=== PATIENT | female | born 1980 | race Caucasian/White ===

== ENCOUNTER 2016-07-17 05:33 | Emergency (ER) | payer OTHER ==
[~2016-07-17] VITALS: Ht 152.4 cm; Wt 59.0 kg
[~2016-07-17 05:33] MED LIST: BENADRYL50 MG PO; FOLIC ACID5 MG PO; HYDROCORTISONE1.5 GM TP; MACROBID100 M1 PO; PRENATAL VITAMI1 T10 PO; ZOFRAN4 M1 PO; ZOFRAN4 M2 PO
[2016-07-17 05:34] VITALS: BP 131/85
--- NOTE | 2016-07-17 05:45 | NUR ---
PT TAKEN TO BED 3
--- NOTE | 2016-07-17 05:48 | NUR ---
Patient being evaluated by DR. PERKINS at bedside.
[2016-07-17] MEDS ORDERED: NACL 0.9% 500 ML IV ONE (05:49)
[2016-07-17] MEDS ORDERED: KETOROLAC 30 MG/ML VIAL IVP ONE (05:50)
[2016-07-17] MEDS ORDERED: ONDANSETRON 4 MG/2 ML VIAL IVP ONE (05:50)
--- NOTE | 2016-07-17 06:00 | NUR ---
36Y/F PATIENT PRESENTS TO ED WITH C/O RT. FLANK PAIN X 1 DAY. PT STATES PAIN STATRTED YESTERDAY WITH NAUSEA, TODAY PAIN WORSEN, DENIES FEVER. DENIES DIARRHEA; SKIN IS PINK/WARM/DRY; AAOX4 WITH EVEN AND STEADY GAIT; LUNGS CLEAR BL; HR EVEN AND REGULAR; PT DENIES ANY FEVER, CP, SOB, OR COUGH AT THIS TIME; PATIENT STATES PAIN OF 10/10 AT THIS TIME; VSS; PATIENT POSITIONED FOR COMFORT; HOB ELEVATED; BEDRAILS UP X2; BED DOWN. ER MD MADE AWARE OF PT STATUS.
--- NOTE | 2016-07-17 06:18 | NUR ---
US AT BEDSIDE
[2016-07-17] MEDS ORDERED: fentaNYL 0.05 MG/ML VIAL IVP ONE (06:55)
--- NOTE | 2016-07-17 07:15 | NUR ---
Patient discharged with v/s stable. Written and verbal after care instructions given and explained. Patient alert, oriented and verbalized understanding of instructions. Ambulatory with steady gait. All questions addressed prior to discharge. ID band removed. Patient advised to follow up with PMD. Rx of TRAMADOL 50 ML, ZOFRAN 4 MG, MOTRIN 800 MG given. Patient educated on indication of medication including possible reaction and side effects. Opportunity to ask questions provided and answered.
[2016-07-17 07:16] VITALS: BP 130/69
== END 2016-07-17 07:15 | disposition home or self-care (01) ==
LOC: MED 05:33
DX: K80.50 Calculus of bile duct without cholangitis or cholecystitis without obstruction (principal); R03.0 Elevated blood-pressure reading, without diagnosis of hypertension
CPT/HCPCS: 36415; 76705; 80053; 81002; 81025; 83690; 85025; 96361; 96374; 96375; 99285; J1885; J2405; J3010; J7030; Q0092

== ENCOUNTER 2017-06-23 06:55 | Emergency (ER) | payer OTHER ==
[~2017-06-23] VITALS: Ht 154.9 cm; Wt 59.1 kg
[~2017-06-23 06:55] MED LIST changes: -BENADRYL50 MG PO; +FOLI5CAP PO; -FOLIC ACID5 MG PO; -HYDROCORTISONE1.5 GM TP; -MACROBID100 M1 PO; +ONDA4TAB PO; +PREN-385 PO; -PRENATAL VITAMI1 T10 PO; -ZOFRAN4 M1 PO; -ZOFRAN4 M2 PO
[2017-06-23 06:58] VITALS: BP 118/75
--- NOTE | 2017-06-23 07:05 | NUR ---
PT TAKEN TO BED 11 Addendum: 06/23/17 at 0711 by ISMA PT TAKEN TO BED 12
[2017-06-23 07:21] LABS: BASOPHILS # (AUTO) 0.2 K/uL (0.00-0.22); BASOPHILS % (AUTO) 4.3 % (0.0-2.0); EOSINOPHILS # (AUTO) 0.2 K/uL (0-0.4); EOSINOPHILS % (AUTO) 3.7 % (0.0-4.0); HEMATOCRIT 33.5 % (36-48); LYMPHOCYTES # (AUTO) 1.2 K/uL (2.5-16.5); LYMPHOCYTES % (AUTO) 25.1 % (20.5-51.1); MEAN CORPUSCULAR HEMOGLOBIN 29 pg (27-31); MEAN CORPUSCULAR HGB CONC 33 g/dL (33-37); MEAN CORPUSCULAR VOLUME 87 fL (80-94); MONOCYTES # (AUTO) 0.4 K/uL (0.8-1.0); MONOCYTES % (AUTO) 8.9 % (1.7-9.3); NEUTROPHILS # (AUTO) 2.8 K/uL (1.8-7.7); PLATELET COUNT (AUTO) 204 K/uL (140-450); RED BLOOD CELL COUNT(AUTO) 3.87 MIL/uL (4.20-5.40); RED CELL DISTRIBUTION WIDTH 14.1 % (11.6-13.7); WHITE BLOOD COUNT (AUTO) 4.8 K/uL (4.8-10.8)
--- NOTE | 2017-06-23 07:26 | NUR ---
PATIENT PRESENTS TO ED WITH a2--recent found out she is vaginal spotting x4 days with intermittent cramping . PT STATES is concerned due to having hx of ectopic] . DENIES N/V/D; SKIN IS PINK/WARM/DRY; AAOX4 WITH EVEN AND STEADY GAIT; LUNGS CLEAR BL; HR EVEN AND REGULAR; PT DENIES ANY FEVER, CP, SOB, OR COUGH AT THIS TIME; PATIENT STATES PAIN OF 7/10 AT THIS TIME; VSS; PATIENT POSITIONED FOR COMFORT; HOB ELEVATED; BEDRAILS UP X2; BED DOWN. ER MD MADE AWARE OF PT STATUS.
[2017-06-23 07:41] LABS: BILIRUBIN,URINE NEGATIVE (NEGATIVE); BLOOD, URINE 1+ (NEGATIVE); COLOR,URINE YELLOW (YELLOW); LEUKOCYTE ESTERASE ,URINE 2+ (NEGATIVE); NITRITE, URINE NEGATIVE (NEGATIVE); PH,URINE 5.5 (5.0-9.0); UGLUCOSE NEGATIVE (NEGATIVE)
[2017-06-23] MEDS ORDERED: ACETAMINOPHEN EXTRA STRENGTH 500 MG TAB PO ONE (08:00)
--- NOTE | 2017-06-23 08:08 | NUR ---
bedside ultrasound at bedside
[2017-06-23 08:25] LABS: APPEARANCE,URINE HAZY (CLEAR)
[2017-06-23 08:26] LABS: WBC,URINE 6-15 (FEW) /HPF (0-5)
[2017-06-23 08:27] LABS: RBC,URINE 0-5 (RARE) /HPF (0-5)
[2017-06-23 09:20] VITALS: BP 108/70
--- NOTE | 2017-06-23 09:20 | NUR ---
Patient discharged with v/s stable. Written and verbal after care instructions given and explained. Patient alert, oriented and verbalized understanding of instructions. Ambulatory with steady gait. All questions addressed prior to discharge. ID band removed. Patient advised to follow up with PMD. Rx of MACROBID/ VIT/TYLENOL given. Patient educated on indication of medication including possible reaction and side effects. Opportunity to ask questions provided and answered. REPEAT ULTRASOUND 2 WKS
== END 2017-06-23 09:20 | disposition home or self-care (01) ==
LOC: MED 06:55
DX: O20.0 Threatened abortion (principal); O23.41 Unspecified infection of urinary tract in pregnancy, first trimester; Z3A.01 Less than 8 weeks gestation of pregnancy; Z90.721 Acquired absence of ovaries, unilateral
CPT/HCPCS: 36415; 76817; 81001; 81025; 84702; 85025; 86900; 86901; 87086; 99285; Q0092

== ENCOUNTER 2017-06-27 09:13 | Emergency (ER) | payer OTHER ==
[~2017-06-27] VITALS: Ht 154.9 cm; Wt 62.6 kg
[2017-06-27 09:24] VITALS: BP 111/66
[2017-06-27] MEDS: ACETAMINOPHEN EXTRA STRENGTH 500 MG TAB PO ONE (09:45)
--- NOTE | 2017-06-27 09:48 | NUR ---
PATIENT PRESENTS TO ED WITH C/O OF PAIN ON LOWER ABD AND VAGINAL BLEEDING . PT STATES LOWER ABD CRAMPING SINCE YESTERDAY AND VAGINAL BLEEDING THIS MORNING. DENIES N/V/D; SKIN IS PINK/WARM/DRY; AAOX4 WITH EVEN AND STEADY GAIT; HR EVEN AND REGULAR; PT DENIES ANY FEVER, CP, SOB, OR COUGH AT THIS TIME; PATIENT STATES PAIN OF 7/10 AT THIS TIME; VSS; PATIENT POSITIONED FOR COMFORT; HOB ELEVATED; BEDRAILS UP X2; BED DOWN. ER MD MADE AWARE OF PT STATUS.
[2017-06-27 09:59] LABS: APPEARANCE,URINE HAZY (CLEAR); BILIRUBIN,URINE 1+ (NEGATIVE); BLOOD, URINE 3+ (NEGATIVE); COLOR,URINE YELLOW (YELLOW); LEUKOCYTE ESTERASE ,URINE TRACE (NEGATIVE); NITRITE, URINE NEGATIVE (NEGATIVE); PH,URINE 5.5 (5.0-9.0); UGLUCOSE NEGATIVE (NEGATIVE)
--- NOTE | 2017-06-27 10:03 | NUR ---
BLOOD SAMPLE COLLECTED AND TAKEN BY LAB.
[2017-06-27 10:16] LABS: RBC,URINE 3-10 (FEW) /HPF (0-5)
--- NOTE | 2017-06-27 10:53 | NUR ---
PT DISCHARGED ON STABLE CONDITION ACCOMPANIED BY FAMILY MEMBER. DISCHARGE TEACHING PROVIDED REGARDING MEDICATION, HOME CARE. VERBALIZED UNDERSTANDING.
[2017-06-27 11:05] VITALS: BP 110/77
== END 2017-06-27 10:53 | disposition home or self-care (01) ==
LOC: MED 09:13
DX: O03.9 Complete or unspecified spontaneous abortion without complication (principal); O23.41 Unspecified infection of urinary tract in pregnancy, first trimester; Z3A.01 Less than 8 weeks gestation of pregnancy
CPT/HCPCS: 36415; 81001; 81025; 84702; 87086; 99284

== ENCOUNTER 2017-10-28 03:49 | Emergency (ER) | payer OTHER ==
[~2017-10-28] VITALS: Ht 154.9 cm; Wt 57.4 kg
[2017-10-28 03:52] VITALS: BP 124/71
--- NOTE | 2017-10-28 03:58 | NUR ---
PATIENT AMBULATED TO ER BED 11
--- NOTE | 2017-10-28 04:18 | NUR ---
PT BIB SELF TO ER C/O "LOCK JAW" LOG DECKMAN THAT SELF RESOLVED LOG DECKMAN, PT ON ARRIVAL STATES SHE WOULD LIKE TO BE ASSESSED FOR COUGH FOR PAST 3 DAYS. RR EVEN AND UNLABORED, BL BS CLEAR THROUGOUT. PT IS SITTING IN BED, IN NO ACUTE DISTRESS, ER MD AWARE OF PT STATUS.
--- NOTE | 2017-10-28 04:24 | NUR ---
Patient discharged with v/s stable. Written and verbal after care instructions given and explained. Patient alert, oriented and verbalized understanding of instructions. Ambulatory with steady gait. All questions addressed prior to discharge. ID band removed. Patient advised to follow up with PMD. Rx of PROMETHAZINE HCL/DEXTROMETHORPHAN given. Patient educated on indication of medication including possible reaction and side effects. Opportunity to ask questions provided and answered.
[2017-10-28 04:25] VITALS: BP 124/71
== END 2017-10-28 04:24 | disposition home or self-care (01) ==
LOC: MED 03:49
DX: J06.9 Acute upper respiratory infection, unspecified (principal); R03.0 Elevated blood-pressure reading, without diagnosis of hypertension
CPT/HCPCS: 87081; 99284

== ENCOUNTER 2018-05-07 15:02 | Emergency (ER) | payer OTHER ==
[~2018-05-07] VITALS: Ht 144.8 cm; Wt 57.3 kg
[2018-05-07 15:05] VITALS: BP 137/81
--- NOTE | 2018-05-07 18:09 | NUR ---
NO ANSWER IN ER LOBBY
--- NOTE | 2018-05-07 18:09 | NUR ---
PATIENT LEFT WITHOUT BEING SEEN BY DR. LYNCH. NO FURTHER CARE PROVIDED FOR PATIENT.
--- NOTE | 2018-05-07 18:15 | NUR ---
SECOND CALL, NO RESPONSE. PRIMITIVO ADDISON MADE AWARE
--- NOTE | 2018-05-07 18:20 | NUR ---
PATIENT CALLED FOR THE 3RD TIME, NO RESPONSE
--- NOTE | 2018-05-07 18:30 | NUR ---
Jameson tran in EDM - 05/07/18 at 2000 by [email or web address] SECOND CALL, NO RESPONSE. PRIMITIVO ADDISON MADE AWARE
== END 2018-05-07 18:09 | disposition left against medical advice (07) ==
LOC: MED 15:02
DX: F41.9 Anxiety disorder, unspecified (principal); Z53.21 Procedure and treatment not carried out due to patient leaving prior to being seen by health care provider

== ENCOUNTER 2018-05-07 23:27 | Emergency (ER) | payer OTHER ==
[~2018-05-07] VITALS: Ht 154.9 cm; Wt 57.2 kg
[2018-05-07 23:32] VITALS: BP 129/92
--- NOTE | 2018-05-08 01:20 | NUR ---
CAME IN WITH C/O OF SOB, RT FLANK PAIN, NAUSEA, DIZZINESS, HEADACHE, ANXIETY FOR 3 DAYS.
--- NOTE | 2018-05-08 01:25 | NUR ---
Patient being evaluated by physician at bedside.
[2018-05-08] MEDS ORDERED: NACL 0.9% 1,000 ML IV ONE (01:30)
[2018-05-08] MEDS ORDERED: KETOROLAC 30 MG/ML VIAL IVP ONE (01:30)
[2018-05-08] MEDS ORDERED: LORazepam 2 MG/ML VIAL IVP ONE (01:30)
[2018-05-08 03:00] VITALS: BP 120/75
== END 2018-05-08 03:00 | disposition home or self-care (01) ==
LOC: MED 23:27
DX: F41.0 Panic disorder [episodic paroxysmal anxiety] (principal); R03.0 Elevated blood-pressure reading, without diagnosis of hypertension; R10.9 Unspecified abdominal pain; Z79.899 Other long term (current) drug therapy
CPT/HCPCS: 70450; 81002; 81025; 96374; 96375; 99284; J1885; J2060; J7030

== ENCOUNTER 2019-03-23 01:59 | Emergency (ER) | payer OTHER ==
[~2019-03-23] VITALS: Ht 154.9 cm; Wt 58.1 kg
[2019-03-23 02:12] VITALS: BP 114/80
--- NOTE | 2019-03-23 02:12 | NUR ---
Pt ambulated to bed 9.
--- NOTE | 2019-03-23 02:30 | NUR ---
39 Y/O FEMALE PRESENTS TO ED, C/O RIGHT FLANK PAIN /. PT STATES PAIN IS INTERMITTENT FOR PAST 1 MONTH, WORSENED TODAY. PAIN DOES NOT RADIATE. PT TAKES MOTRIN FOR PAIN WITH NO RELIEF. PT C/O NAUSEA, DENIES VOMITING. NO DIARRHEA NOTED. NO FEVER NOTED. PT VSS. ERMD AWARE. WILL CONTINUE TO MONITOR.
[2019-03-23] MEDS ORDERED: ONDANSETRON 4 MG/2 ML VIAL IVP ONE (02:45)
[2019-03-23] MEDS ORDERED: NACL 0.9% 500 ML IV ONE (02:45)
[2019-03-23] MEDS ORDERED: KETOROLAC 30 MG/ML VIAL IVP ONE (02:45)
--- NOTE | 2019-03-23 03:14 | NUR ---
PT TAKEN TO CT
--- NOTE | 2019-03-23 03:24 | NUR ---
PATIENT BACK FROM CT.
[2019-03-23] MEDS ORDERED: traMADol 50 MG TAB PO ONE (04:40)
[2019-03-23 04:47] VITALS: BP 125/77
--- NOTE | 2019-03-23 04:47 | NUR ---
PT DISCHARGED WITH PAPERWORK. RX MOTRIN, MINERAL OIL, MIRALAX. EDUCATED PT REGARDING MEDICATIONS AND S/E. EDUCATED PT REGARDING D/C DIAGNOSIS AND INSTRUCTIONS. PT VERBALIZED UNDERSTANDING OF TEACHING. TOLD PT TO FOLLOW UP WITH PCP AND WHEN TO RETURN TO ED. PT AT STABLE CONDITION. ALL QUESTIONS ANSWERED.
== END 2019-03-23 04:47 | disposition home or self-care (01) ==
LOC: MED 01:59
DX: K76.89 Other specified diseases of liver (principal); K80.80 Other cholelithiasis without obstruction; K59.00 Constipation, unspecified
CPT/HCPCS: 74176; 81002; 81025; 96361; 96374; 96375; 99284; J1885; J2405

== ENCOUNTER 2019-04-01 03:19 | Emergency (ER) | payer OTHER ==
[~2019-04-01] VITALS: Ht 152.4 cm; Wt 58.1 kg
[2019-04-01 03:25] VITALS: BP 131/76
--- NOTE | 2019-04-01 03:25 | NUR ---
TO BED # 07 AMBULATORY
--- NOTE | 2019-04-01 03:41 | NUR ---
39 YO F BIB SELF PRESENTS TO ED C/O 01/17 BURNING PAIN TO URQ RADIATING INTO BACK SINCE YESTERDAY AFTERNOON. PT STATES SHE WAS SEEN LAST WEEK FOR SIMILAR S/SX AND DX WITH GALLSTONES. PT WAS TAKING IBUPROFEN 800 MG WHICH SHE SAID WAS HELPFUL UNTIL SHE FOUND OUT SHE WAS 4 WEEKS AND THEN SWITCHED TO TYLENOL WHICH SHE SAID WAS HELPFUL UNTIL THE PAIN WOKE HER UP. DENIES NVD, FEVER, PAINFUL/BURNING URINATION. PMH-- HYPOTHYROID
[2019-04-01 04:05] VITALS: BP 131/76
--- NOTE | 2019-04-01 04:05 | NUR ---
Patient discharged with v/s stable. Written and verbal after care instructions given and explained. Patient alert, oriented and verbalized understanding of instructions. Ambulatory with steady gait. All questions addressed prior to discharge. ID band removed. Patient advised to follow up with PMD. Rx of [place] given. Patient educated on indication of medication including possible reaction and side effects. Opportunity to ask questions provided and answered.
== END 2019-04-01 04:05 | disposition home or self-care (01) ==
LOC: MED 03:19
DX: O26.92 Pregnancy related conditions, unspecified, second trimester (principal); R10.9 Unspecified abdominal pain; R11.0 Nausea; E11.9 Type 2 diabetes mellitus without complications; Z79.899 Other long term (current) drug therapy; Z98.890 Other specified postprocedural states
CPT/HCPCS: 99283

== ENCOUNTER 2019-04-11 01:52 | Emergency (ER) | payer OTHER ==
[~2019-04-11] VITALS: Ht 152.4 cm; Wt 61.2 kg
[2019-04-11 02:00] VITALS: BP 117/79
--- NOTE | 2019-04-11 02:00 | NUR ---
Pt ambulated to bed 12.
--- NOTE | 2019-04-11 02:10 | NUR ---
39 YO F BIB SELF AND SON PRESENTS TO ED C/O 11/17 SUPRAPUBIC CRAMPING WITH RIGHT SIDE FLANK PAIN OFF AND ON X 2 WEEKS. WAS SEEN HERE X 2 FOR SIMILAR S/SX WITHIN PAST MONTH. DX WITH GALLSTONES. DOES NOT KNOW WHAT RX SHE WAS GIVEN BUT STATES IT IS NO LONGER HELPING TO RELIEVE PAIN. ALSO C/O URINARY FREQUENCY AND UGENCY AND NAUSEA WITHOUT VOMITING. DENIES URINARY BURNING. PT STATES SHE IS BUT DOES NOT KNOW HOW FAR ALONG. NO CARE AT THIS TIME. AFEBRILE, VSS. PMH-- DENIES
[2019-04-11] MEDS ORDERED: ACETAMINOPHEN EXTRA STRENGTH 500 MG TAB PO ONE (02:35)
[2019-04-11] MEDS ORDERED: LACTULOSE 20 GM/30 ML UDC PO ONE (02:35)
--- NOTE | 2019-04-11 02:45 | NUR ---
PHLEB DRAWING LABS AT BEDSIDE.
--- NOTE | 2019-04-11 02:46 | NUR ---
MEDICATED WITH 1 G PO TYLENOL AND PO LACTULOSE FOR 9/10 ABD PAIN.
--- NOTE | 2019-04-11 03:02 | NUR ---
Ultrasound at bedside.
[2019-04-11 03:03] LABS: BASOPHILS # (AUTO) 0.1 K/uL (0.00-0.22); BASOPHILS % (AUTO) 1.1 % (0.0-2.0); EOSINOPHILS # (AUTO) 0.2 K/uL (0-0.4); EOSINOPHILS % (AUTO) 3.6 % (0.0-4.0); HEMOGLOBIN 11.6 g/dL (12.0-16.0); LYMPHOCYTES # (AUTO) 1.9 K/uL (2.5-16.5); LYMPHOCYTES % (AUTO) 34.9 % (20.5-51.1); MEAN CORPUSCULAR HEMOGLOBIN 31 pg (27-31); MEAN CORPUSCULAR HGB CONC 33 g/dL (33-37); MEAN CORPUSCULAR VOLUME 93.6 fL (80-94); MONOCYTES # (AUTO) 0.5 K/uL (0.8-1.0); MONOCYTES % (AUTO) 8.1 % (1.7-9.3); NEUTROPHILS # (AUTO) 2.9 K/uL (1.8-7.7); NEUTROPHILS % (AUTO) 52.3 % (42.2-75.2); PLATELET COUNT (AUTO) 189 K/uL (140-450); RED BLOOD CELL COUNT(AUTO) 3.74 MIL/uL (4.20-5.40); RED CELL DISTRIBUTION WIDTH 14.9 % (11.6-13.7); WHITE BLOOD COUNT (AUTO) 5.6 K/uL (4.8-10.8)
[2019-04-11 03:13] LABS: APPEARANCE,URINE CLOUDY (CLEAR); BILIRUBIN,URINE NEGATIVE (NEGATIVE); BLOOD, URINE NEGATIVE (NEGATIVE); COLOR,URINE YELLOW (YELLOW); LEUKOCYTE ESTERASE ,URINE 1+ (NEGATIVE); NITRITE, URINE NEGATIVE (NEGATIVE); UGLUCOSE NEGATIVE (NEGATIVE)
[2019-04-11 03:24] LABS: ANION GAP 15.2 (8-16); CARBON DIOXIDE 26.6 mmol/L (21-32); CREATININE 0.9 mg/dL (0.6-1.3); POTASSIUM 3.8 mmol/L (3.5-5.1); TOTAL BILIRUBIN 0.3 mg/dL (0.0-1.0)
[2019-04-11] MEDS ORDERED: NITROFURANTOIN 100 MG CAP PO ONE (03:40)
[2019-04-11 04:09] LABS: RBC,URINE 0-5 /HPF (0-5); WBC,URINE 0-5 /HPF (0-5)
[2019-04-11 04:27] VITALS: BP 117/79
--- NOTE | 2019-04-11 04:27 | NUR ---
Patient discharged with v/s stable. Written and verbal after care instructions given and explained. Patient alert, oriented and verbalized understanding of instructions. Ambulatory with steady gait. All questions addressed prior to discharge. ID band removed. Patient advised to follow up with PMD. Rx of Macrobid and Miralax given. Patient educated on indication of medication including possible reaction and side effects. Opportunity to ask questions provided and answered.
== END 2019-04-11 04:27 | disposition home or self-care (01) ==
LOC: MED 01:52
DX: O99.611 Diseases of the digestive system complicating pregnancy, first trimester (principal); O23.41 Unspecified infection of urinary tract in pregnancy, first trimester; O26.91 Pregnancy related conditions, unspecified, first trimester; K59.00 Constipation, unspecified; E07.9 Disorder of thyroid, unspecified; Z79.899 Other long term (current) drug therapy
CPT/HCPCS: 36415; 76705; 76817; 80053; 81001; 81025; 84702; 85025; 86900; 86901; 87086; 99284; Q0092

== ENCOUNTER 2019-04-12 11:44 | Emergency (ER) | payer OTHER ==
[~2019-04-12] VITALS: Ht 152.4 cm; Wt 59.4 kg
[2019-04-12 12:31] VITALS: BP 114/72
--- NOTE | 2019-04-12 12:35 | NUR ---
Pt sent to ER lobby to wait for available bed.
--- NOTE | 2019-04-12 12:47 | NUR ---
Pt ambulated to bed 7.
--- NOTE | 2019-04-12 12:55 | NUR ---
CAME IN WITH C/O LOWER ABD PAIN WITH VAG BLEEDING SCANTY IN AMOUNT, STARTED THIS MORNING AT 0730 HOUR.
[2019-04-12 13:42] LABS: BASOPHILS # (AUTO) 0.1 K/uL (0.00-0.22); BASOPHILS % (AUTO) 0.8 % (0.0-2.0); EOSINOPHILS # (AUTO) 0.1 K/uL (0-0.4); EOSINOPHILS % (AUTO) 2.1 % (0.0-4.0); HEMATOCRIT 35.1 % (36-48); HEMOGLOBIN 11.7 g/dL (12.0-16.0); LYMPHOCYTES # (AUTO) 1.4 K/uL (2.5-16.5); LYMPHOCYTES % (AUTO) 20.5 % (20.5-51.1); MEAN CORPUSCULAR HEMOGLOBIN 31 pg (27-31); MEAN CORPUSCULAR HGB CONC 33 g/dL (33-37); MEAN CORPUSCULAR VOLUME 93.7 fL (80-94); MONOCYTES # (AUTO) 0.4 K/uL (0.8-1.0); MONOCYTES % (AUTO) 6.7 % (1.7-9.3); NEUTROPHILS # (AUTO) 4.7 K/uL (1.8-7.7); NEUTROPHILS % (AUTO) 69.9 % (42.2-75.2); PLATELET COUNT (AUTO) 188 K/uL (140-450); RED BLOOD CELL COUNT(AUTO) 3.75 MIL/uL (4.20-5.40); RED CELL DISTRIBUTION WIDTH 14.6 % (11.6-13.7); WHITE BLOOD COUNT (AUTO) 6.7 K/uL (4.8-10.8)
[2019-04-12 13:44] LABS: APPEARANCE,URINE CLOUDY (CLEAR); BILIRUBIN,URINE NEGATIVE (NEGATIVE); BLOOD, URINE 2+ (NEGATIVE); COLOR,URINE YELLOW (YELLOW); LEUKOCYTE ESTERASE ,URINE 3+ (NEGATIVE); NITRITE, URINE NEGATIVE (NEGATIVE); PH,URINE 8.5 (5.0-9.0); UGLUCOSE NEGATIVE (NEGATIVE)
[2019-04-12 13:53] LABS: ANION GAP 12.7 (8-16); CARBON DIOXIDE 25.5 mmol/L (21-32); CREATININE 0.7 mg/dL (0.6-1.3); POTASSIUM 4.2 mmol/L (3.5-5.1)
[2019-04-12 14:08] LABS: FREE T4 (FREE THYROXINE) 0.77 ng/dL (0.76-1.46); THYROID STIMULATING HORMONE 40.46 uIU/mL (0.34-3.74); TOTAL BILIRUBIN 0.3 mg/dL (0.0-1.0)
[2019-04-12 14:14] LABS: RBC,URINE 11-20 (MOD) /HPF (0-5); WBC,URINE 16-25 (MOD) /HPF (0-5)
--- NOTE | 2019-04-12 14:50 | NUR ---
Dr. Sesay is evaluating the patient at bedside.
--- NOTE | 2019-04-12 14:51 | NUR ---
ALL RESULTS BACK AND NOTED BY ERMD AND FOR D/C
[2019-04-12 15:05] VITALS: BP 119/81
--- NOTE | 2019-04-12 15:05 | NUR ---
Patient discharged with v/s stable. Written and verbal after care instructions given and explained. Patient verbalized understanding. Ambulatory with steady gait. All questions addressed prior to discharge. Advised to follow up with PMD.
== END 2019-04-12 15:05 | disposition home or self-care (01) ==
LOC: MED 11:44
DX: O20.0 Threatened abortion (principal); E03.9 Hypothyroidism, unspecified; Z3A.01 Less than 8 weeks gestation of pregnancy; Z79.899 Other long term (current) drug therapy
CPT/HCPCS: 36415; 80053; 81001; 84439; 84443; 84702; 85025; 87086; 99283

== ENCOUNTER 2019-05-17 12:00 | Emergency (ER) | payer OTHER ==
[~2019-05-17] VITALS: Ht 152.4 cm; Wt 59.0 kg
[2019-05-17 12:29] VITALS: BP 110/58
--- NOTE | 2019-05-17 12:31 | NUR ---
TO LOBBY, VSS. AWAITING BED IN ED.
--- NOTE | 2019-05-17 12:58 | NUR ---
Patient ambulated to bed 1. RN evaluating patient at bedside.
--- NOTE | 2019-05-17 13:12 | NUR ---
39 Y/O F C/C RUQ PAIN RADIATING TO THE LOWER BACK 10/10 PAIN, SHARP. PER PT IT HAS HAPPENED ONCE IN THE PAST. PT CURRENTLY 11 WEEKS. PT HX THYROID PROBLEMS. RX SYNTHROID. NAUSEUS. NO V/D. SIDE RAIL X1.
--- NOTE | 2019-05-17 13:25 | NUR ---
PT RESTING IN BED, SIDE RAIL X1
--- NOTE | 2019-05-17 14:45 | NUR ---
PT RESTING COMFORTABLY, VSS.
--- NOTE | 2019-05-17 15:24 | NUR ---
OXIDIZED FINISH PLATER AT BEDSIDE PERFORMING ORDERED TEST.
--- NOTE | 2019-05-17 15:38 | NUR ---
DR CROCKETT AT BEDSIDE EXAMINING PATIENT.
[2019-05-17] MEDS ORDERED: NACL 0.9% 1,000 ML IV ONE (15:45)
[2019-05-17] MEDS ORDERED: MORPHINE SULFATE 4 MG/ML SYR IVP ONE (15:45)
[2019-05-17] MEDS ORDERED: ONDANSETRON 4 MG/2 ML VIAL IVP ONE (15:45)
[2019-05-17] MEDS ORDERED: cefTRIAXone 1,000 MG VIAL ONE (15:58)
[2019-05-17 16:21] LABS: BASOPHILS % (AUTO) 0.5 % (0.0-2.0); EOSINOPHILS # (AUTO) 0.1 K/uL (0-0.4); EOSINOPHILS % (AUTO) 1.4 % (0.0-4.0); HEMATOCRIT 35.2 % (36-48); HEMOGLOBIN 11.8 g/dL (12.0-16.0); LYMPHOCYTES # (AUTO) 1.8 K/uL (2.5-16.5); LYMPHOCYTES % (AUTO) 24.8 % (20.5-51.1); MEAN CORPUSCULAR HEMOGLOBIN 32 pg (27-31); MEAN CORPUSCULAR HGB CONC 34 g/dL (33-37); MEAN CORPUSCULAR VOLUME 95.4 fL (80-94); MONOCYTES # (AUTO) 0.3 K/uL (0.8-1.0); MONOCYTES % (AUTO) 4.8 % (1.7-9.3); NEUTROPHILS # (AUTO) 4.9 K/uL (1.8-7.7); NEUTROPHILS % (AUTO) 68.5 % (42.2-75.2); PLATELET COUNT (AUTO) 182 K/uL (140-450); RED BLOOD CELL COUNT(AUTO) 3.69 MIL/uL (4.20-5.40); RED CELL DISTRIBUTION WIDTH 14.1 % (11.6-13.7); WHITE BLOOD COUNT (AUTO) 7.2 K/uL (4.8-10.8)
[2019-05-17 16:32] LABS: APPEARANCE,URINE SL CLOUDY (CLEAR); BILIRUBIN,URINE NEGATIVE (NEGATIVE); BLOOD, URINE NEGATIVE (NEGATIVE); COLOR,URINE YELLOW (YELLOW); LEUKOCYTE ESTERASE ,URINE 1+ (NEGATIVE); NITRITE, URINE NEGATIVE (NEGATIVE); UGLUCOSE NEGATIVE (NEGATIVE)
[2019-05-17 16:41] LABS: RBC,URINE 0-5 /HPF (0-5)
[2019-05-17 16:53] LABS: ALBUMIN 3.8 g/dL (3.4-5.0); ANION GAP 13.6 (8-16); CARBON DIOXIDE 24.8 mmol/L (21-32); CREATININE 0.5 mg/dL (0.6-1.3); POTASSIUM 3.4 mmol/L (3.5-5.1); TOTAL BILIRUBIN 0.3 mg/dL (0.0-1.0)
[2019-05-17] MEDS ORDERED: MORPHINE SULFATE 2 MG/ML SYR IVP ONE (17:50)
[2019-05-17 18:00] VITALS: BP 108/62
== END 2019-05-17 18:02 | disposition home or self-care (01) ==
LOC: MED 12:00
DX: O23.41 Unspecified infection of urinary tract in pregnancy, first trimester (principal); E07.9 Disorder of thyroid, unspecified; Z3A.11 11 weeks gestation of pregnancy; Z79.899 Other long term (current) drug therapy
CPT/HCPCS: 36415; 76801; 80053; 81001; 81025; 84702; 85025; 86900; 86901; 87086; 96365; 96375; 96376; 99284; J0696; J2270; J2405; J7030; Q0092